=== PATIENT | female | born 1995 | race Caucasian/White ===

== ENCOUNTER 2017-04-19 21:17 | Emergency (ER) | payer OTHER ==
[~2017-04-19] VITALS: Ht 162.6 cm; Wt 56.7 kg
[~2017-04-19 21:17] MED LIST: CLARITIN10 MG; MOTRIN400 MG PO; ZITHROMAX PO
== END 2017-04-19 23:45 | disposition home or self-care (01) ==
LOC: CED 21:17 → CFTX 21:17
DX: J02.9 Acute pharyngitis, unspecified (principal)
CPT/HCPCS: 87651; 99283